=== PATIENT | male | born 1960 | race American Indian/Alaskan Native ===

== ENCOUNTER 2017-07-05 11:47 | Emergency (ER) | payer OTHER ==
[2017-07-05 12:03] VITALS: BP 148/90
[2017-07-05 12:20] LABS: Eosinophils % (Auto) 0.9 % (0.0-4.3); Hematocrit 46.8 % (35.5-45.6); Hemoglobin 15.5 gm/dl (11.8-15.2); Mean Corpuscular HGB Conc 33 % (32-34); Mean Corpuscular Hemoglobin 29 pg (28-32); Mean Corpuscular Volume 88 fl (84-94); Platelet Count 259 K/mm3 (140-440); Red Blood Count 5.32 M/mm3 (3.65-5.03); White Blood Count 5.8 K/mm3 (4.5-11.0)
[2017-07-05 12:40] LABS: Albumin 4.1 g/dL (3.9-5); Albumin/Globulin Ratio 1.1 %; Bilirubin,Total 0.3 mg/dL (0.1-1.2); Calcium 9.1 mg/dL (8.4-10.2); Chloride 100.2 mmol/L (98-107); Potassium 4.4 mmol/L (3.6-5.0); Total Protein 7.9 g/dL (6.3-8.2)
== END 2017-07-05 12:30 | disposition left against medical advice (07) ==
LOC: ED 11:47
DX: J11.1 Influenza due to unidentified influenza virus with other respiratory manifestations (principal); Z53.21 Procedure and treatment not carried out due to patient leaving prior to being seen by health care provider
CPT/HCPCS: 36415; 80053; 85025